=== PATIENT | female | born 1995 | race Caucasian/White ===

== ENCOUNTER 2022-03-13 13:30 | Outpatient (CLI) | payer BC, SELFPAY ==
[2022-03-13 22:15] LABS: C Reactive Protein* < 0.5 mg/dL (0.5-1.0)
== END 2022-03-13 13:31 | disposition home or self-care (01) ==
LOC: LKVREF 13:31
PROVIDERS: PCP Emergency Medicine; Visit Provider Emergency Medicine
DX: R07.81 Pleurodynia (principal)
CPT/HCPCS: 86140